=== PATIENT | female | born 1970 | race Caucasian/White ===

== ENCOUNTER → 2017-12-04 | Outpatient (CLI) | payer OTHER ==
[~2017-12-04] MED LIST: VALA500T60 PO
== END | disposition home or self-care (01) ==
LOC: C.LABSPEC 17:51
PROVIDERS: ATTEND Obstetrics & Gynecology
DX: N76.0 Acute vaginitis (principal); R39.9 Unspecified symptoms and signs involving the genitourinary system

== ENCOUNTER → 2017-12-06 | Outpatient (CLI) | payer OTHER ==
--- NOTE | 2017-12-06 16:01 | DIAGNOSTIC IMAGING REPORT ---
R HAND MIN 3 VIEWS ROUTINE CLINICAL HISTORY: PAIN IN RIGHT FINGERS pain COMPARISON: None. DISCUSSION: The bones and joint spaces appear intact. There is no evidence of fracture, dislocation or bony disease. There is no evidence for soft tissue swelling. IMPRESSION: Negative study. The above report was generated using voice recognition software. It may contain grammatical, syntax or spelling errors. Electronically signed by: Ryder Velarde M.D. 12/06/2017 3:59 PM Dictated Date/Time: 12/06/2017 3:59 PM
== END | disposition home or self-care (01) ==
LOC: C.LABBC 15:21
PROVIDERS: ATTEND Family Medicine
DX: M79.644 Pain in right finger(s) (principal)

== ENCOUNTER → 2018-05-15 | Outpatient (CLI) | payer OTHER | END | disposition home or self-care (01) | LOC: C.PATHSPEC 11:22 | PROVIDERS: ATTEND Obstetrics & Gynecology | DX: R87.810 Cervical high risk human papillomavirus (HPV) DNA test positive (principal); N72 Inflammatory disease of cervix uteri ==